=== PATIENT | male | born 1980 | race Hispanic/Latino ===

== ENCOUNTER 2019-12-10 08:08 | Emergency (ER) | payer OTHER ==
[2019-12-10 08:35] LABS: Absolute Lymphocytes (CBC) 0.7 K/uL (0.7-4.9); Basophils % 0.4 % (0-1.3); Hematocrit 42.8 % (39.6-49.0); Lymphocytes % 5.6 % (15.3-44.8); MPV 8.8 fL (7.6-11.3)
[2019-12-10 09:00] LABS: ALT/SGPT 36 U/L (12-78); AST/SGOT 17 U/L (15-37); Albumin 3.9 g/dL (3.4-5.0); Alkaline Phosphatase 83 U/L (45-117); BUN Blood Urea Nitrogen 11 mg/dL (7-18); Bicarbonate 29 mmol/L (21-32); Bilirubin Direct 0.3 mg/dL (0-0.2); Bilirubin Total 1.3 mg/dL (0.2-1.0); Glucose Level 114 mg/dL (74-106); Lipase 140 U/L (73-393); Potassium 3.7 mmol/L (3.5-5.1); Protein, Total 7.8 g/dL (6.4-8.2); Sodium Level 142 mmol/L (136-145)
[2019-12-10 09:26] LABS: Blood Morphology Comment NOT SEEN (NOT SEEN); Platelet Estimate ADEQ
--- NOTE | 2019-12-10 09:57 | RAD REPORT ---
EXAM DESCRIPTION: CT - Abdomen Pelvis W Contrast - 12/10/2019 9:32 am CLINICAL HISTORY: Abdominal pain COMPARISON: none. TECHNIQUE: Computed axial tomography of the abdomen pelvis was obtained. 100 cc Isovue-300 was admin istered intravenously. Oral contrast was not requested which limits evaluation of bowel. All CT scans are performed using dose optimization technique as appropriate and may include automated exposure control or mA/KV adjustment according to patient size. FINDINGS: The liver, spleen, pancreas, adrenal and left kidney appear unremarkable. Small right aries l cyst. Right renal cortical thinning perhaps secondary to prior inflammation There is no evidence of diverticulitis. Normal appendix Mild dilatation of the stomach and jejunum. Ileum is normal caliber. No free air Small left inguinal hernia contains fat. Old right rib fracture IMPRESSION: These findings are suggestive of a mechanical small bowel obstruction
--- NOTE | 2019-12-10 11:42 | RAD REPORT ---
EXAM DESCRIPTION: RAD - Abdomen 1 View (KUB) - 12/10/2019 11:16 am CLINICAL HISTORY: Abdomen pain. FINDINGS: Free air is not seen beneath the diaphragm. Mildly dilated small bowel with diminished air in the colon likely a mechanical small bowel obstructi on
--- NOTE | 2019-12-10 11:57 | EDPHYS ---
Physician Documentation [facility] Name: Elroy Monet Age: 39 yrs Sex: Male : 1980 Arrival Date: 12/10/2019 Time: 08:10 Bed 2 Private MD: ED Physician Erik Haas HPI: 12/09 10:06 This 39 yrs old Male presents to ER via EMS with complaints of Abdominal Pain. kdr 10:06 The patient presents with abdominal pain in the upper abdomen. Onset: The kdr symptoms/episode began/occurred suddenly, this morning. The symptoms do not radiate. Associated signs and symptoms: Pertinent positives: nausea, Pertinent negatives: anorexia, blood in stools, chest pain, constipation, diarrhea, dysuria, fever, headache, hematuria, shortness of breath, testicular pain, vomiting, vomiting blood. The symptoms are described as achy, constant, crampy. Modifying factors: The symptoms are alleviated by nothing, the symptoms are aggravated by nothing. Severity of pain: At its worst the pain was moderate in the emergency department the pain has resolved. The patient has not experienced similar symptoms in the past. The patient has not recently seen a physician. Historical: - Allergies: 08:10 No Known Allergies; aa5 - PMHx: 08:10 None; aa5 - PSHx: 08:10 None; aa5 - Immunization history:: Adult Immunizations unknown. - Social history:: Smoking status: unknown. ROS: 10:06 Constitutional: Negative for fever, chills, and weight loss, Eyes: Negative for injury, kdr pain, redness, and discharge, Neck: Negative for injury, pain, and swelling, Cardiovascular: Negative for chest pain, palpitations, and edema, Respiratory: Negative for shortness of breath, cough, wheezing, and pleuritic chest pain, Back: Negative for injury and pain, : Negative for injury, bleeding, discharge, and swelling, MS/Extremity: Negative for injury and deformity, Skin: Negative for injury, rash, and discoloration, Neuro: Negative for headache, weakness, numbness, tingling, and seizure activity. Psych: Negative for depression, anxiety, suicide ideation, homicidal ideation, and hallucinations, Allergy/Immunology: Negative for hives, rash, and allergies, Endocrine: Negative for neck swelling, polydipsia, polyuria, polyphagia, and marked weight changes, Hematologic/Lymphatic: Negative for swollen nodes, abnormal bleeding, and unusual bruising. 10:06 Abdomen/GI: Positive for abdominal pain, nausea, Negative for diarrhea, constipation, abdominal cramps, abdominal distension, anorexia, dysphagia, hematemesis, black/tarry stool, rectal pain, rectal bleeding, bowel incontinence. Exam: 10:06 Constitutional: This is a well developed, well nourished patient who is awake, alert, kdr and in no acute distress. Head/Face: Normocephalic, atraumatic. Eyes: Pupils equal round and reactive to light, extra-ocular motions intact. Lids and lashes normal. Conjunctiva and sclera are non-icteric and not injected. Cornea within normal limits. Periorbital areas with no swelling, redness, or edema. Neck: Trachea midline, no thyromegaly or masses palpated, and no cervical lymphadenopathy. Supple, full range of motion without nuchal rigidity, or vertebral point tenderness. No Meningismus. Chest/axilla: Normal chest wall appearance and motion. Nontender with no deformity. No lesions are appreciated. Cardiovascular: Regular rate and rhythm with a normal S1 and S2. No gallops, murmurs, or rubs. Normal PMI, no JVD. No pulse deficits. Respiratory: Lungs have equal breath sounds bilaterally, clear to auscultation and percussion. No rales, rhonchi or wheezes noted. No increased work of breathing, no retractions or nasal flaring. Abdomen/GI: Soft, non-tender, with normal bowel sounds. No distension or tympany. No guarding or rebound. No evidence of tenderness throughout. Back: No spinal tenderness. No costovertebral tenderness. Full range of motion. Skin: Warm, dry with normal turgor. Normal color with no rashes, no lesions, and no evidence of cellulitis. MS/ Extremity: Pulses equal, no cyanosis. Neurovascular intact. Full, normal range of motion. Neuro: Awake and alert, GCS 15, oriented to person, place, time, and situation. Cranial nerves II-XII grossly intact. Motor strength 5/5 in all extremities. Sensory grossly intact. Cerebellar exam normal. Normal gait. Psych: Awake, alert, with orientation to person, place and time. Behavior, mood, and affect are within normal limits. Vital Signs: 08:10 BP 129 / 92; Pulse 78; Resp 18 S; Temp 98.6(O); Pulse Ox 99% on R/A; Weight 73.48 kg aa5 (R); Height 5 ft. 5 in. (165.10 cm) (R); Pain 0/10; 08:10 BP 129 / 92 LA; aa5 08:12 BP 128 / 88 RA; aa5 09:06 BP 127 / 86; Pulse 68; Resp 17; Pulse Ox 100% ; Pain 0/10; jl7 10:18 BP 123 / 80; Pulse 67; Resp 17; Pulse Ox 100% ; jl7 11:50 BP 124 / 83; Pulse 82; Resp 17; Pulse Ox 100% ; jl7 13:30 BP 127 / 89; Pulse 79; Resp 15; Pulse Ox 100% ; jl7 08:10 Body Mass Index 26.96 (73.48 kg, 165.10 cm) aa5 MDM: 10:06 Data reviewed: vital signs, nurses notes, lab test result(s), radiologic studies. kdr Counseling: I had a detailed discussion with the patient and/or guardian regarding: the historical points, exam findings, and any diagnostic results supporting the discharge/admit diagnosis, lab results, radiology results, the need for outpatient follow up. 11:57 Patient medically screened. kdr 12/09 08:25 Order name: Basic Metabolic Panel; Complete Time: 09:55 kdr 12/09 08:25 Order name: CBC with Diff; Complete Time: 09:55 kdr 12/09 08:25 Order name: Hepatic Function; Complete Time: 09:55 kdr 12/09 08:25 Order name: Lipase; Complete Time: 09:55 kdr 12/09 08:39 Order name: Manual Differential; Complete Time: 09:55 EDMS 12/09 10:21 Order name: CREATININE WHOLE BLOOD; Complete Time: 11:17 EDMS 12/09 09:23 Order name: Abdomen ; Complete Time: 10:20 EDMS 12/09 10:23 Order name: Abdomen 1 View (KUB) XRAY; Complete Time: 11:50 kdr 12/09 12:32 Order name: Lactate kdr 12/09 13:45 Order name: Chest Single View XRAY em1 12/09 08:25 Order name: IV Saline Lock; Complete Time: 08:31 kdr 12/09 08:25 Order name: Labs collected and sent; Complete Time: 08:31 kdr Administered Medications: 12:55 Drug: Zofran (Ondansetron) 4 mg Route: IVP; Site: right antecubital; jl7 13:01 Follow up: Response: No adverse reaction jl7 13:30 Drug: Phenergan 12.5 mg Route: IVP; Site: right antecubital; jl7 14:07 Follow up: Response: Nausea is decreased jl7 13:32 Drug: morphine 4 mg Route: IVP; Site: right antecubital; jl7 14:07 Follow up: Response: No adverse reaction jl7 Disposition: 12/10/19 11:57 Transfer ordered to [facility]. Diagnosis is Bowel Obstruction. - Reason for transfer: Higher level of care. - Accepting physician is [facility] Annmarie Wolff. - Condition is Fair. - Problem is new. - Symptoms have improved. Signatures: Dispatcher [employer] EDOH Erik Haas MD MD kdr Sherita Warner, RN RN aa5 Syed Flores RN RN jl7 Corrections: (The following items were deleted from the chart) 09:19 08:26 Abdomen Pelvis W Con+CT.RAD.BRZ ordered. [facility] EDOH 12:26 11:57 12/10/2019 11:57 Transfer ordered to [facility]. Diagnosis is Bowel Obstruction. kdr Reason for transfer: Higher level of care. Accepting physician is [facility]. Condition is Fair. Problem is new. Symptoms have improved. kdr 14:14 12:26 12/10/2019 11:57 Transfer ordered to [facility]. Diagnosis is Bowel Obstruction. jl7 Reason for transfer: Higher level of care. Accepting physician is [facility] Annmarie Wolff. Condition is Fair. Problem is new. Symptoms have improved. kdr
--- NOTE | 2019-12-10 11:57 | ER ---
Nurse's Notes [facility] Name: Elroy Monet Age: 39 yrs Sex: Male : 1980 Arrival Date: 12/10/2019 Time: 08:10 Bed 2 Private MD: Diagnosis: Bowel Obstruction Presentation: 12/09 08:10 Chief complaint: Patient states: epigastric pain radiating to back that began last aa5 night around 1999 and pain resolved after 200 cc NS bolus was given by EMS en route. Pt currently denies any pain. Pt reports "I was feeling nauseous but I never threw up". Pt denies diarrhea. 08:10 Coronavirus screen: At this time, the client does not indicate any symptoms associated aa5 with coronavirus-19. Ebola Screen: Patient negative for fever greater than or equal to 101.5 degrees Fahrenheit, and additional compatible Ebola Virus Disease symptoms. Initial Sepsis Screen: Does the patient meet any 2 criteria? No. Patient's initial sepsis screen is negative. Does the patient have a suspected source of infection? No. Patient's initial sepsis screen is negative. Risk Assessment: Do you want to hurt yourself or someone else? Patient reports no desire to harm self or others. Onset of symptoms was December 09, 2019. 08:10 Acuity: GABBI 3 aa5 08:10 Method Of Arrival: EMS: [facility] aa5 08:10 Care prior to arrival: Medication(s) given: Normal saline infusion, 200mls bolus IV aa5 initiated. 18 GA, in the right antecubital area. Historical: - Allergies: 08:10 No Known Allergies; aa5 - PMHx: 08:10 None; aa5 - PSHx: 08:10 None; aa5 - Immunization history:: Adult Immunizations unknown. - Social history:: Smoking status: unknown. Screenin:06 Abuse screen: Denies threats or abuse. Denies injuries from another. Nutritional jl7 screening: No deficits noted. Tuberculosis screening: No symptoms or risk factors identified. Fall Risk IV access (20 points). Total Enciso Fall Scale indicates No Risk (0-24 pts). Assessment: 08:30 General: Appears in no apparent distress. uncomfortable, Behavior is calm, cooperative, jl7 appropriate for age. Pain: Complains of pain in epigastric area Pain does not radiate. Pain currently is 0 out of 10 on a pain scale. at worst was 10 out of 10 on a pain scale. Pain began suddenly. Neuro: Level of Consciousness is awake, alert, obeys commands, Oriented to person, place, time, situation. Cardiovascular: Patient's skin is warm and dry. Respiratory: Airway is patent Respiratory effort is even, unlabored, Respiratory pattern is regular, symmetrical. GI: Abdomen is non-distended, Abd is soft and non tender X 4 quads. : No signs and/or symptoms were reported regarding the genitourinary system. Derm: Skin is pink, warm \\T\\ dry. 09:30 Reassessment: Patient appears in no apparent distress at this time. No changes from 7 previously documented assessment. Patient and/or family updated on plan of care and expected duration. Pain level reassessed. Patient is alert, oriented x 3, equal unlabored respirations, skin warm/dry/pink. 10:00 Reassessment: Pt ambulated to bathroom for BM, reports small amount of diarrhea. jl7 10:30 Reassessment: Pt ambulated to bathroom for BM, reports another small amount of diarrhea.jl7 11:20 Reassessment: Pt ambulated to bathroom, reports small amount of formed stool. 7 13:01 Reassessment: Pt vomiting, ERD notified, VO for Zofrn 4 mg IVP and NG tube placement. 7 Vital Signs: 08:10 BP 129 / 92; Pulse 78; Resp 18 S; Temp 98.6(O); Pulse Ox 99% on R/A; Weight 73.48 kg aa5 (R); Height 5 ft. 5 in. (165.10 cm) (R); Pain 0/10; 08:10 BP 129 / 92 LA; aa5 08:12 BP 128 / 88 RA; aa5 09:06 BP 127 / 86; Pulse 68; Resp 17; Pulse Ox 100% ; Pain 0/10; jl7 10:18 BP 123 / 80; Pulse 67; Resp 17; Pulse Ox 100% ; jl7 11:50 BP 124 / 83; Pulse 82; Resp 17; Pulse Ox 100% ; jl7 13:30 BP 127 / 89; Pulse 79; Resp 15; Pulse Ox 100% ; jl7 08:10 Body Mass Index 26.96 (73.48 kg, 165.10 cm) aa5 ED Course: 08:10 Patient arrived in ED. aa5 08:10 Arm band placed on Patient placed in an exam room, on a stretcher. aa5 08:13 Erik Haas MD is Attending Physician. kdr 08:16 Triage completed. aa5 08:23 Syed Flores, RN is Primary Nurse. jl7 08:30 Initial lab(s) drawn, by ED staff, sent to lab. Maintain EMS IV. Dressing intact. Good jl7 blood return noted. Site clean \\T\\ dry. Gauge \\T\\ site: 18 right AC. 09:06 Patient has correct armband on for positive identification. Bed in low position. Call jl7 light in reach. Side rails up X2. Security at bedside. Pulse ox on. NIBP on. 09:32 Abdomen In Process Unspecified. EDMS 11:16 Abdomen 1 View (KUB) XRAY In Process Unspecified. EDMS 13:36 No provider procedures requiring assistance completed. NGT: inserted 12 Fr. via left jl7 nare. verified placement of air over stomach, verified return of gastric contents, Placement verified by X-ray, to intermittent suction. Returned bile. flushed Patient tolerated poorly. Patient transferred, IV remains in place. intact, No redness/swelling at site. 13:50 Chest Single View XRAY In Process Unspecified. EDMS Administered Medications: 12:55 Drug: Zofran (Ondansetron) 4 mg Route: IVP; Site: right antecubital; jl7 13:01 Follow up: Response: No adverse reaction jl7 13:30 Drug: Phenergan 12.5 mg Route: IVP; Site: right antecubital; jl7 14:07 Follow up: Response: Nausea is decreased jl7 13:32 Drug: morphine 4 mg Route: IVP; Site: right antecubital; jl7 14:07 Follow up: Response: No adverse reaction jl7 Outcome: 11:57 ER care complete, transfer ordered by . kdr 14:08 Transferred by ground EMS to [facility], Transfer form jl7 completed. X-rays sent w/ patient. 14:08 Condition: stable 14:08 Discharge instructions given to patient, Instructed on the need for transfer, Demonstrated understanding of instructions. 14:14 Patient left the ED. jl7 Signatures: Dispatcher [employer] Erik Sanchez MD MD kdr Calderon, Audri, RN RN aa5 Syed Flores RN RN jl7 Corrections: (The following items were deleted from the chart) 13:00 08:30 Maintain EMS IV. Dressing intact. Good blood return noted. Site clean \\T\\ dry. jl7 Gauge \\T\\ site: 20 left AC. jl7
[2019-12-10] MEDS ORDERED: ONDANSETRON 4 MG/2 ML VIAL ONE (12:59)
[2019-12-10] MEDS ORDERED: LIDOCAINE VISCOUS 2% SOLN 15 ML UDC ONE (13:05)
[2019-12-10] MEDS ORDERED: PROMETHAZINE INJ 25 MG/ML AMP ONE (13:40)
[2019-12-10] MEDS ORDERED: MORPHINE 4 MG/ML SYR ONE (13:40)
--- NOTE | 2019-12-10 13:54 | RAD REPORT ---
EXAM DESCRIPTION: RAD - Chest Single View - 12/10/2019 1:50 pm CLINICAL HISTORY: NG tube Chest pain. COMPARISON: Abdomen 1 View (KUB) dated 12/10/2019 FINDINGS: The enteric tube is coiled in the stomach.
[2019-12-10 14:26] VITALS: TEMP 98.6
[2019-12-10 14:29] VITALS: O2SAT 100
[2019-12-10 14:34] VITALS: BP 127/89
== END 2019-12-10 14:14 | disposition short-term general hospital (02) ==
LOC: ER 08:08
DX: K56.609 Unspecified intestinal obstruction, unspecified as to partial versus complete obstruction (principal)
CPT/HCPCS: 85025; 80048; 36415; 82565; 80076; 83605; 83690; 74177; 74018; 71045; 96375; 96374; 99285; Q9967; J2405; J2550